=== PATIENT | male | born 1990 | race Caucasian/White ===

== ENCOUNTER 2021-11-29 10:08 | Emergency (ER) | payer OTHER, SELFPAY ==
[2021-11-29 10:29] VITALS: BP 128/90; PULSE 79; RESP 16; TEMP 36.6; O2SAT 100
--- NOTE | 2021-11-29 10:54 | ED.URI ---
HPI - URI/Sore Throat General Chief Complaint: Upper Respiratory Infection Stated Complaint: Sore Throat Time Seen by Provider: 11/29/21 10:45 Source: patient and RN notes reviewed Mode of arrival: ambulatory Limitations: no limitations History of Present Illness HPI Narrative: 31-year-old male presented for complaint of sinus pressure and congestion, cough and sore throat, onset 2 days ago. Denies headache, fever, chills, body aches, nausea, vomiting, diarrhea. He has taken DayQuil and NyQuil with no relief in symptoms. He has not been boosted for COVID and cannot recall if he has had a flu shot. Endorses sick contacts. History of diabetes and hypertension. He vapes. MD elicited complaint: cough Related Data Home Medications Medication Instructions Recorded Confirmed amlodipine 5 mg PO DAILY 11/29/21 11/29/21 atenolol 50 mg PO DAILY 11/29/21 11/29/21 fenofibrate 160 mg PO DAILY 11/29/21 11/29/21 fluoxetine 20 mg PO DAILY 11/29/21 11/29/21 glipizide 10 mg PO DAILY 11/29/21 11/29/21 metformin 500 mg PO DIRECTED 11/29/21 11/29/21 pioglitazone 15 mg PO DAILY 11/29/21 11/29/21 Allergies Allergy/AdvReac Type Severity Reaction Status Date / Time latex Allergy Intermediate lock jaw Verified 11/29/21 10:39 and zombified Review of Systems Review of Systems: CONSTITUTIONAL: denies malaise, chills, sweats, fever EYES: Denies visual changes, redness, or discharge ENT: Reports rhinorrhea, congestion, sinus pain, sore throat CARDIOVASCULAR: Denies chest pain, palpitations, edema RESPIRATORY: Reports cough, post nasal drainage. Denies dyspnea GASTROINTESTINAL: Denies abdominal pain, nausea, vomiting, diarrhea SKIN: Denies rash or itching MUSCULOSKELETAL: denies myalgia NEUROLOGIC: Denies headache Exam Narrative: GENERAL: Ill-appearing, nontoxic no acute distress. HEAD: Normocephalic EYES: PERRLA, conjunctivae clear ENT: Mucous membranes moist. TM pearly edwards with light reflex bilaterally; no tragal tenderness. Oropharynx erythematous without lesions or exudate, no drooling, no hoarseness, no trismus, uvula midline. No tripod positioning, muffled voice, soft palate or pharyngeal wall bulging NECK: Supple. No lymphadenopathy CHEST: Clear to auscultation, breath sounds equal. No wheezing, rhonchi, rales, or stridor. No respiratory distress, speaks in full sentences. HEART: Regular rate and rhythm. No murmur heard. SKIN: Warm, dry, no rash. NEURO: Alert and oriented x3. PSYCH: Normal mood and affect Course Course Emergency Course: Patient is aware of diagnosis, understands and agrees to treatment plan. Anticipatory guidance given. Patient agrees to follow-up as directed and is aware of reasons to seek care at the emergency department. Portions of this record may have been created with voice recognition software Level of Care: Express Care Visit Vital Signs Vital signs: Vital Signs Temperature 97.9 F 11/29/21 10:29 Pulse Rate 79 11/29/21 10:29 Respiratory Rate 16 11/29/21 10:29 Blood Pressure 128/90 11/29/21 10:29 Pulse Oximetry 100 11/29/21 10:29 Temperature 97.9 F 11/29/21 10:29 Pulse Rate 79 11/29/21 10:29 Respiratory Rate 16 11/29/21 10:29 Blood Pressure 128/90 11/29/21 10:29 Pulse Oximetry 100 11/29/21 10:29 reviewed MDM - URI/Sore Throat MDM Narrative Medical decision making narrative: flu and covid negative. No distress. Unlikely pneumonia or critical illness. vss. pt will dc home and establish with pcp for f/u. ER if sx worsen. Differential Diagnosis Differential diagnosis: Likely upper respiratory infection, sinusitis, viral infection, influenza and pharyngitis Lab Data Attestation: I reviewed the patient's lab results. Labs: Influenza A Screen Negative Reference Range: Negative Influenza B Screen Negative Reference Range: Negative
== END 2021-11-29 11:50 | disposition home or self-care (01) ==
PROVIDERS: Emergency Provider Nurse Practitioner Family
DX: J06.9 Acute upper respiratory infection, unspecified (principal); Z20.822 Contact with and (suspected) exposure to COVID-19; E11.9 Type 2 diabetes mellitus without complications; I10 Essential (primary) hypertension; F17.200 Nicotine dependence, unspecified, uncomplicated
CPT/HCPCS: 87426; 87804; 99213; C9803; G0463

== ENCOUNTER 2022-02-03 15:06 | Emergency (ER) | payer OTHER, SELFPAY ==
--- NOTE | ~2022-02-03 | XR_ITS ---
EXAM: XR wrist RT min 3V HISTORY: FALL DOWNSTAIRS, RT WRIST PAIN COMPARISON: None available FINDINGS: Normal mineralization. No fracture or dislocation. No lytic or blastic lesion. Joint space s maintained. No erosion or periosteal change. Soft tissues within normal limits. IMPRESSION: No acute osseous finding in the right wrist. Reviewed, dictated and finalized at location K.
--- NOTE | ~2022-02-03 | XR_ITS ---
EXAM: XR thoracic spine 3V HISTORY: FALL,THE DOWNSTAIRS, UPPER BACK COMPARISON: None available FINDINGS: Mild thoracic scoliosis. Pedicles intact. Normal vertebral body alignment noting that the upper and mid thoracic spine is poorly visualized in the lateral view. Vertebral body heights preserv ed. Disc spaces maintained. Normal facets and posterior elements. IMPRESSION: Exam limited by poor visualization of the mid and upper thoracic spine in the lateral view. Reviewed, dictated and finalized at location K. IMPRESSION: Exam limited by poor visualization of the mid and upper thoracic spine in the l ateral view.
[2022-02-03 15:18] VITALS: BP 141/89; PULSE 89; RESP 16; TEMP 36.6; O2SAT 99
--- NOTE | 2022-02-03 15:24 | ED.UPPEXIN ---
HPI - Extremity Injury (Upper) General Chief Complaint: Fall Stated Complaint: Back and wrist pain Time Seen by Provider: 02/03/22 15:24 Source: patient Mode of arrival: ambulatory Limitations: no limitations History of Present Illness HPI narrative: 31-year-old male presents with complaint of right wrist pain and pain to middle back. Reports that last night he was carrying a empty lizard tank down steps and he slipped and fell. Hit back against stairs. Has an abrasion to his back. Range of motion and distal neurovascular intact to right wrist. No head injury. Denies LOC ambulatory with steady gait. All systems reviewed and negative except as noted above. Related Data Home Medications Medication Instructions Recorded Confirmed amlodipine 5 mg PO DAILY 11/29/21 02/03/22 atenolol 50 mg PO DAILY 11/29/21 02/03/22 fenofibrate 160 mg PO DAILY 11/29/21 02/03/22 fluoxetine 20 mg PO DAILY 11/29/21 02/03/22 glipizide 10 mg PO DAILY 11/29/21 02/03/22 metformin 500 mg PO DIRECTED 11/29/21 02/03/22 pioglitazone 15 mg PO DAILY 11/29/21 02/03/22 Allergies Allergy/AdvReac Type Severity Reaction Status Date / Time latex Allergy Intermediate lock jaw Verified 02/03/22 15:12 and zombified Review of Systems Review of Systems: CONSTITUTIONAL: Denies fever, chills, or sweats. EYES: Denies visual changes, redness, or discharge. ENT: Denies rhinorrhea, congestion, sore throat, or otalgia. CARDIOVASCULAR: Denies chest pain, palpitations, or edema. RESPIRATORY: Denies cough or dyspnea. GASTROINTESTINAL: Denies abdominal pain, nausea, vomiting, or diarrhea. GENITOURINARY: Denies dysuria or hematuria. SKIN: Denies rash or itching. MUSCULOSKELETAL: Reports pain to middle of back with abrasion. Reports right wrist pain. NEUROLOGIC: Denies headache, numbness, or weakness. PSYCHIATRIC: Denies anxiety or depression. All other systems reviewed are negative, except as documented in HPI. PMFSH Comments At time of signature, agree with nursing past medical, surgical, social and family history. There is no relevant family history pertinent to the presenting complaint. Exam Narrative: GENERAL: This is a well-nourished, well-developed patient, in no apparent distress. HEAD: normocephalic, atraumatic. EYES: PERRL. Sclera clear/white. Vision is grossly intact. EARS: External ears normal NOSE: External nose normal NECK: Neck supple, non-tender without lymphadenopathy, masses or thyromegaly. CARDIOVASCULAR: Regular rate and rhythm without murmurs, gallops, or rubs. RESPIRATORY: Clear to auscultation. Breath sounds equal bilaterally. No wheezes, rales, or rhonchi. SKIN: warm, Dry, intact with no suspicious lesions or rash, good texture and turgor. NEURO: awake, alert, and oriented to person, place and time. There were no obvious focal neurologic abnormalities. EXTREMITIES: Swelling to right wrist. Generalized tenderness to distal aspect. Range of motion normal and distal neurovascularly intact. There is an abrasion across the middle of the back. Midline tenderness noted. BACK:There is an abrasion across the middle of the back. Midline tenderness noted. Const: General: Physically active Back/Spine/Pelvis: Back/spine/pelvis image: 1. Tender on palpation 2. Abrasion Course Course Level of Care: Express Care Visit Vital Signs Vital signs: Vital Signs Temperature 36.6 C 02/03/22 15:18 Pulse Rate 89 02/03/22 15:18 Respiratory Rate 16 02/03/22 15:18 Blood Pressure 141/89 H 02/03/22 15:18 Pulse Oximetry 99 02/03/22 15:18 Temperature 36.6 C 02/03/22 15:18 Pulse Rate 89 02/03/22 15:18 Respiratory Rate 16 02/03/22 15:18 Blood Pressure 141/89 H 02/03/22 15:18 Pulse Oximetry 99 02/03/22 15:18 Reviewed MDM - Extremity Injury (Upper) MDM Narrative Medical decision making narrative: Discussed x-ray results with patient. Patient placed in Chris wrap to right wrist by Selma ANTONIO. Recommend fo
== END 2022-02-03 16:15 | disposition home or self-care (01) ==
PROVIDERS: Emergency Provider Nurse Practitioner Family
DX: S63.501A Unspecified sprain of right wrist, initial encounter (principal); W10.9XXA Fall (on) (from) unspecified stairs and steps, initial encounter; S20.224A Contusion of middle back wall of thorax, initial encounter; I10 Essential (primary) hypertension; E11.9 Type 2 diabetes mellitus without complications; F41.9 Anxiety disorder, unspecified
CPT/HCPCS: 72072; 73110; 99214; G0463

== ENCOUNTER 2022-08-24 11:18 | Emergency (ER) | payer OTHER, SELFPAY ==
[2022-08-24 11:48] VITALS: BP 152/96; PULSE 74; RESP 16; TEMP 36.4; O2SAT 98
--- NOTE | 2022-08-24 12:00 | ED.URI ---
HPI - URI/Sore Throat General Chief Complaint: Upper Respiratory Infection Stated Complaint: uri Time Seen by Provider: 08/24/22 12:08 Source: patient and RN notes reviewed Mode of arrival: ambulatory Limitations: no limitations History of Present Illness HPI Narrative: 32-year-old male presents concern for 2 day history of left ear pain and sore throat. He denies fever, aches, chills, sweats, cough, shortness of breath. Denies taking any medications for his symptoms. Reports he has missed 2 days of work and needs a work note. MD elicited complaint: sore throat Related Data Home Medications Medication Instructions Recorded Confirmed amlodipine 5 mg tablet 5 mg PO DAILY 11/29/21 08/24/22 atenolol 50 mg tablet 50 mg PO DAILY 11/29/21 08/24/22 fenofibrate 160 mg tablet 160 mg PO DAILY 11/29/21 08/24/22 fluoxetine 20 mg capsule 20 mg PO DAILY 11/29/21 08/24/22 glipizide 10 mg tablet 10 mg PO DAILY 11/29/21 08/24/22 metformin 500 mg tablet,extended 500 mg PO DIRECTED 11/29/21 08/24/22 release 24 hr pioglitazone 15 mg tablet 15 mg PO DAILY 11/29/21 08/24/22 Allergies Allergy/AdvReac Type Severity Reaction Status Date / Time latex Allergy Intermediate lock jaw Verified 02/03/22 15:12 and zombified Review of Systems Review of Systems: CONSTITUTIONAL: Denies malaise, chills, sweats, or fever. EYES: Denies visual changes, redness, or discharge. ENT: Denies rhinorrhea, congestion, sinus pain. Reports otalgia and sore throat. CARDIOVASCULAR: Denies chest pain, palpitations, or edema. RESPIRATORY: Denies cough. Denies dyspnea. GASTROINTESTINAL: Denies abdominal pain, nausea, vomiting, diarrhea SKIN: Denies rash or itching. MUSCULOSKELETAL: Denies myalgia. NEUROLOGIC: Denies headache. All systems reviewed & are unremarkable except as noted in HPI and below PMFSH Comments At time of signature, agree with nursing past medical, surgical, social and family history. There is no relevant family history pertinent to the presenting complaint Exam Narrative: GENERAL: Well-appearing, well-nourished, and in no acute distress. HEAD: Normocephalic EYES: PERRLA, conjunctivae clear ENT: Nares clear, turbinates edematous and erythematous, clear discharge. Mucous membranes moist. TM pearly edwards with dull light reflex bilaterally; no tragal tenderness. Oropharynx not erythematous without lesions. Tonsils not enlarged and without exudate, no drooling, no hoarseness, no trismus, uvula midline. NECK: Supple. No lymphadenopathy CHEST: Clear to auscultation, breath sounds equal. No wheezing, rhonchi, rales, or stridor. No respiratory distress, speaks in full sentences. HEART: Regular rate and rhythm. No murmur heard. SKIN: Warm, dry, no rash. NEURO: Alert and oriented x3. PSYCH: Normal mood and affect Course Course Emergency Course: Patient is aware of diagnosis, understands and agrees to treatment plan. Anticipatory guidance given. Patient agrees to follow-up as directed and is aware of reasons to seek care at the emergency department. Portions of this record may have been created with voice recognition software Level of Care: Express Care Visit Vital Signs Vital signs: Vital Signs Temperature 97.6 F 08/24/22 11:48 Pulse Rate 74 08/24/22 11:48 Respiratory Rate 16 08/24/22 11:48 Blood Pressure 152/96 H 08/24/22 11:48 Pulse Oximetry 98 08/24/22 11:48 Oxygen Delivery Room Air 08/24/22 11:48 Temperature 97.6 F 08/24/22 11:48 Pulse Rate 74 08/24/22 11:48 Respiratory Rate 16 08/24/22 11:48 Blood Pressure 152/96 H 08/24/22 11:48 Pulse Oximetry 98 08/24/22 11:48 Oxygen Delivery Room Air 08/24/22 11:48 Reviewed. MDM - URI/Sore Throat MDM Narrative Medical decision making narrative: Differential diagnosis considered: [place] virus, strep pharyngitis, allergic rhinitis, upper respiratory tract infection, sinusitis, rhinosinusitis, nasopharyngitis. viral pharyngitis, otitis media,
== END 2022-08-24 12:22 | disposition home or self-care (01) ==
PROVIDERS: Emergency Provider Nurse Practitioner; PCP Physician Assistant
DX: J06.9 Acute upper respiratory infection, unspecified (principal); I10 Essential (primary) hypertension; E11.9 Type 2 diabetes mellitus without complications; F41.9 Anxiety disorder, unspecified; F32.A Depression, unspecified
CPT/HCPCS: 99213; G0463